=== PATIENT | male | born 1950 | race Caucasian/White ===

== ENCOUNTER 2020-08-31 | Emergency (ER) | payer MEDICARE, OTHER ==
[~2020-08-31] VITALS: Ht 177.8 cm; Wt 59.1 kg
[2020-08-31] MEDS ORDERED: AMLO-257 PO (00:57)
[2020-08-31] MEDS ORDERED: PARO-66 PO (00:57)
[2020-08-31] MEDS ORDERED: TRAZ-257 PO (00:57)
[2020-08-31] MEDS ORDERED: TAMS-13 PO (00:57)
[2020-08-31] MEDS ORDERED: ATOR10TA84 PO (00:57)
[2020-08-31] MEDS ORDERED: MECLIZINE HCL 25 MG TABLET PO ONE (01:45)
[2020-08-31] MEDS ORDERED: ONDANSETRON HCL 4 MG TABLET PO ONE (01:45)
[2020-08-31] MEDS ORDERED: PB/HYOSCY/ATR/SCOP/LIDO/MAALOX 55 ML BOTTLE PO ONE (01:45)
[2020-08-31 02:10] VITALS: BP 158/78
== END 2020-08-31 03:09 | disposition home or self-care (01) ==
LOC: EMS 00:03
DX: H81.10 Benign paroxysmal vertigo, unspecified ear (principal); F41.9 Anxiety disorder, unspecified; F32.9 Major depressive disorder, single episode, unspecified; I10 Essential (primary) hypertension
CPT/HCPCS: 93005; 99284; Q0162

== ENCOUNTER 2023-05-07 18:27 | Emergency (ER) | payer MEDICARE, OTHER ==
[~2023-05-07] VITALS: Ht 177.8 cm; Wt 63.6 kg
[~2023-05-07 18:27] MED LIST: AMLO-257 PO; ATOR10TA PO; PARO-149 PO; TAMS0.4C94 PO; TRAZ-257 PO
[2023-05-07 18:35] VITALS: TEMP 98.5
[2023-05-07 22:56] LABS: BASOPHILS % (AUTO) 0.9 % (0.0-2.0); EOSINOPHILS % (AUTO) 1.7 % (1.0-6.0); HEMATOCRIT 45.5 % (41-53); HEMOGLOBIN 15.5 g/dL (13.5-17.5); LYMPHOCYTES # (AUTO) 3.1 K/uL (1.0-4.8); LYMPHOCYTES % (AUTO) 28.5 % (22.0-44.0); MEAN CORPUSCULAR HEMOGLOBIN 33.7 pg (26.0-34.0); MEAN CORPUSCULAR HGB CONC 34.1 G/dL (31.0-37.0); MEAN CORPUSCULAR VOLUME 99 fL (80-100); MONOCYTES # (AUTO) 0.7 K/uL (0.1-1.0); MONOCYTES % (AUTO) 6.8 % (2.0-9.0); NEUTROPHILS # (AUTO) 6.6 K/uL (1.8-7.7); NEUTROPHILS % (AUTO) 62.1 % (40.0-70.0); PLATELET COUNT (AUTO) 300 K/uL (150-450); RED BLOOD CELL COUNT(AUTO) 4.61 MIL/uL (4.50-5.90); RED CELL DISTRIBUTION WIDTH 14.3 % (11.5-14.5); WHITE BLOOD COUNT (AUTO) 10.7 K/uL (4.5-11.0)
[2023-05-07 23:03] LABS: ANION GAP 6 mmol/L (8-16); CARBON DIOXIDE 28 mmol/L (22-29); CHLORIDE 97 mmol/L (98-107); CREATININE 0.68 mg/dL (0.60-1.30); GLOMERULAR FILTR. RATE CALC > 60 mL/min (>60); GLUCOSE,RANDOM 88 mg/dL (70-110); POTASSIUM 3.8 mmol/L (3.5-5.1); SODIUM SERUM 131 mmol/L (136-145); UREA NITROGEN, BLOOD 6 mg/dL (7-18)
[2023-05-07 23:06] LABS: ALCOHOL, BLOOD (SERUM) 59 mg/dL (0-10)
[2023-05-07 23:10] LABS: ALANINE AMINOTRANSFERASE 26 U/L (12-78); ALKALINE PHOSPHATASE 76 U/L (46-116); ASPARTATE AMINOTRANSFERASE 27 U/L (15-37); BILIRUBIN,TOTAL 0.3 mg/dL (0.1-1.0); CALCIUM, TOTAL 9.3 mg/dL (8.8-10.5); TOTAL PROTEIN, SERUM 7.6 g/dL (6.4-8.2)
[2023-05-08] MEDS ORDERED: NEOMYCIN/BACITRACIN/POLYMYXIN B OINTMENT PACKET TP ONE (01:45)
[2023-05-08 03:05] VITALS: BP 143/81; PULSE 65; RESP 18
== END 2023-05-08 03:00 | disposition home or self-care (01) ==
LOC: EMS 18:27
DX: S02.2XXA Fracture of nasal bones, initial encounter for closed fracture (principal); J44.9 Chronic obstructive pulmonary disease, unspecified; F41.9 Anxiety disorder, unspecified; F32.A Depression, unspecified; W19.XXXA Unspecified fall, initial encounter; Y93.89 Activity, other specified; Y92.89 Other specified places as the place of occurrence of the external cause; Y99.8 Other external cause status
CPT/HCPCS: 99284; 70450; 80053; 85025; 36415; 70486; G0480